=== PATIENT | female | born 1980 | race African-American/Black ===

== ENCOUNTER 2016-08-29 12:28 | Emergency (ER) | payer MEDICAID ==
[~2016-08-29] VITALS: Ht 154.9 cm; Wt 50.3 kg
[~2016-08-29 12:28] MED LIST: BENADRYL25 MG ORAL; CERAVE453 GM TP; NKM; PENICILLIN V P500 MG PO; ZANTAC150 MG ORAL
[2016-08-29 12:42] VITALS: BP 129/85
[2016-08-29] MEDS ORDERED: Cyclobenzaprine 10mg Tab ORAL ONE (13:00)
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
[2016-08-29] MEDS ORDERED: IBUPROFEN600 MG ORAL (15:49)
[2016-08-29 15:55] VITALS: BP 121/81
--- NOTE | 2016-08-30 10:08 | Diagnostic Imaging Report ---
Indication: Pain Technique: One view of the chest Comparison: none Findings: Lungs and pleural spaces are clear. Heart size is normal. Impression: No acute process
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
== END 2016-08-29 16:04 | disposition home or self-care (01) ==
LOC: EMR 12:54
DX: S20.219A Contusion of unspecified front wall of thorax, initial encounter (principal); S30.1XXA Contusion of abdominal wall, initial encounter; V43.52XA Car driver injured in collision with other type car in traffic accident, initial encounter; Y92.9 Unspecified place or not applicable; Z88.0 Allergy status to penicillin
CPT/HCPCS: 71010; 76700; 81025; 99284

== ENCOUNTER 2017-03-20 14:15 | Emergency (ER) | payer MEDICAID ==
[~2017-03-20] VITALS: Ht 152.4 cm; Wt 49.0 kg
[~2017-03-20 14:15] MED LIST changes: +IBUPROFEN600 MG ORAL
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
[2017-03-20] MEDS ORDERED: IBUPROFEN600 MG ORAL (15:15)
--- NOTE | 2017-03-20 15:36 | Diagnostic Imaging Report ---
Indication: Chest pain Technique: One view of the chest Comparison: 08/29/2016 Findings: Lungs and pleural spaces are clear. Heart size is normal. No significant interim change Impression: No acute process
[2017-03-20 16:05] VITALS: BP 109/78
== END 2017-03-20 16:21 | disposition home or self-care (01) ==
LOC: EMR 15:03
DX: R07.89 Other chest pain (principal); Z88.0 Allergy status to penicillin
CPT/HCPCS: 71010; 99283

== ENCOUNTER 2019-08-28 15:37 | Emergency (ER) | payer MEDICAID ==
[~2019-08-28] VITALS: Ht 154.9 cm; Wt 49.9 kg
--- NOTE | 2019-08-28 16:00 | NUR ---
ED Nurse Note: Pt walked into ED for c/o RLE pain / with tingling R calf. Pt bumped R leg into crate at the store on . Pt ROM RLE 10/15. Pt has no radiation. R pedal pulses 3+. Pt is alert and oriented x4, ambulatory. No open wounds. Site CDI.
--- NOTE | 2019-08-28 16:03 | NUR ---
Note nainone in EDM - 08/28/19 at 1610 by [email or web address] ED Nurse Note: Pt walked into ED for c/o RLE pain / with tingling left calf. Pt bumped L leg into crate at the store on . Pt ROM LLE 10/15. Pt has no radiation. L pedal pulses 3+. Pt is alert and oriented x4, ambulatory. No open wounds. Site CDI.
--- NOTE | 2019-08-28 16:32 | Emergency Room Report ---
History of Present Illness General Chief Complaint: Lower Extremity Injury Source: Patient Present Illness HPI 39-year-old female with no significant past medical history here complaining of right knee and lower extremity pain after hitting a sharp object in the grocery store a few days ago. Patient denies any fall. Rates the pain 5 out of 10 and intermittent upon walking. Denies any tingling numbness. Denies calf tenderness. Denies chest pain shortness of breath. Has not been taking medication for symptom relief. Has full range of motion of the affected area. No bony tenderness noted. Denies all other injuries. Denies at this time. Allergies: Coded Allergies: AMOXICILLIN (Verified Allergy, Unknown, 12/02/15) Patient History Past Medical History: see triage record Past Surgical History: none Pertinent Family History: none Last Menstrual Period: 08/15/19 Now: No Immunizations: UTD Reviewed Nursing Documentation: PMH: Agreed; PSxH: Agreed Nursing Documentation-PMH Past Medical History: No Stated History Review of Systems All Other Systems: negative except mentioned in HPI Physical Exam Vital Signs Date Time Temp Pulse Resp B/P (MAP) Pulse Ox O2 Delivery O2 Flow Rate FiO2 08/28/19 15:50 98.4 76 18 106/57 (73) 99 Room Air Sp02 EP Interpretation: reviewed, normal General Appearance: no apparent distress, alert, GCS 15, non-toxic Head: normocephalic, atraumatic Eyes: bilateral eye normal inspection, bilateral eye PERRL ENT: hearing grossly normal, normal pharynx, no angioedema, normal voice Neck: full range of motion, supple/symm/no masses Respiratory: chest non-tender, lungs clear, normal breath sounds, no rhonchi, no wheezing, speaking full sentences Cardiovascular #1: regular rate, rhythm, no edema, no murmur, normal capillary refill Cardiovascular #2: 2+ dorsalis pedis (R), 2+ dorsalis pedis (L) Gastrointestinal: normal bowel sounds, non tender, soft, non-distended, no guarding, no rebound Rectal: deferred Genitourinary: no CVA tenderness Musculoskeletal: back normal, no calf tenderness, pelvis stable, gait/station normal, non-tender Neurologic: alert, motor strength/tone normal, oriented x3, sensory intact, responsive, speech normal Psychiatric: normal inspection, judgement/insight normal Skin: no rash, palpation normal Lymphatic: no adenopathy Procedures Splinting Splinting : Consent: Verbal Location: Right knee Pre-Made Type: JOHN wrap Pre-Proc Neuro Vasc Exam: normal Post-Proc Neuro Vasc Exam: normal Patient Tolerated: Well Complications: None Medical Decision Making PA Attestation All diagnoses and treatment plans were reviewed and discussed with my supervising physician Dr. Montes Diagnostic Impression: Primary Impression: Contusion of right lower leg ER Course 39-year-old female with no significant past medical history here complaining of right knee and lower extremity pain after hitting a sharp object in the grocery store a few days ago. Patient denies any fall. Rates the pain 5 out of 10 and intermittent upon walking. Denies any tingling numbness. Denies calf tenderness. Denies chest pain shortness of breath. Has not been taking medication for symptom relief. Has full range of motion of the affected area. No bony tenderness noted. Denies all other injuries. Denies at this time. Ddx considered but are not limited to: Knee sprain, strain, fracture, contusion , meniscus tear injury Vital signs: are WNL, pt. is afebrile H&PE are most consistent with: Right lower extremity contusion ORDERS: Knee x-ray, Voltaren gel, Motrin ER intervention: John wrap DISCHARGE: At this time pt. is stable for d/c to home. Will provide printed patient care instructions, and any necessary prescriptions. Care plan and follow up instructions have been discussed with the patient prior to discharge. Patient to follow-up with primary care provider, take medication as directed, worsening symptoms return to the emergency room. Other X-Ray Diagnostic Results Other X-Ray Diagnostic Results : X-Ray ordered: Right knee # of Views/Limited Vs Complete: 3 View Indication: Pain EP Interpretation: Yes PA Xray: Interpretation reviewed, by supervising MD, and agrees with findings. Interpretation: no dislocation, no soft tissue swelling, no fractures Impression: No acute disease Electronically Signed by: Juan José Miranda PA-C Last Vital Signs Date Time Temp Pulse Resp B/P (MAP) Pulse Ox O2 Delivery O2 Flow Rate FiO2 15/20 15:50 98.4 76 18 106/57 (73) 99 Room Air Disposition: HOME, SELF-CARE Condition: Stable Scripts Ibuprofen* (MOTRIN*) 600 Mg Tablet 600 MG ORAL Q6H PRN for For Pain, #30 TAB Prov: Juan José Colbert 08/28/19 Diclofenac Sodium (VOLTAREN) 100 Gm Gel..gram. 2 GM TP TID, #100 GM Prov: Juan José Colbert 08/28/19 Patient Instructions: Contusion, [id number] Additional Instructions: Take medication as directed, follow-up with your primary care provider, avoid strenuous physical activity, if worsening symptoms return to the emergency room Juan José Colbert Aug 28, 2019 16:32
[2019-08-28] MEDS ORDERED: VOLTAREN100 G1 TP (16:35)
[2019-08-28] MEDS ORDERED: IBUPROFEN600 MG ORAL (16:35)
[2019-08-28 16:40] VITALS: BP 106/57
--- NOTE | 2019-08-28 16:41 | NUR ---
ED Nurse Note: Pt cleared by health care Provider for discharge. DC instructions/prescription was given and explained to pt and verbalized understanding of teachings. All medical deviecs such as ID band removed. Pt is AAO x4, ambulatory and left with all personal belongings.
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
== END 2019-08-28 16:41 | disposition home or self-care (01) ==
LOC: EMR 16:30
DX: S80.11XA Contusion of right lower leg, initial encounter (principal); W22.8XXA Striking against or struck by other objects, initial encounter; Y92.512 Supermarket, store or market as the place of occurrence of the external cause; Z88.0 Allergy status to penicillin
CPT/HCPCS: 73562; Z7502; 99283